=== PATIENT | female | born 1995 ===

== ENCOUNTER → 2016-12-24 | Outpatient (CLI) | payer OTHER ==
--- NOTE | 2016-12-24 15:23 | DIAGNOSTIC IMAGING REPORT ---
RIGHT SHOULDER 3 VIEWS; RIGHT CLAVICLE 3 VIEWS CLINICAL HISTORY: Right shoulder and clavicular pain. Rugby injury. FINDINGS: 3 views of the right shoulder and 3 views of the right clavicle are obtained. No prior studies are available for comparison at the time of dictation. The skeletal structures are well mineralized. There is a Hill-Sachs lesion identified in the posterior humeral head with a small subchondral fracture suggested. No distracted fragment is seen. No additional fracture is clearly seen. The clinical history articulation is preserved, as is the right acromioclavicular joint. There is asymmetry of the sternoclavicular joints on the frontal view, with the right clavicular head somewhat elevated as compared to the left. Mild degenerative change is seen within the superior aspect of the clavicle head. No clavicular fracture is seen. Degenerative subchondral cyst formation is noted within the glenoid. The overlying soft tissues are within normal limits. The imaged right lung parenchyma appears clear. IMPRESSION: 1. There is a Hill-Sachs lesion identified in the posterior humeral head with cortical irregularity suggesting subchondral fracture. No distracted fragment is seen. These findings are age-indeterminant and suggest previous shoulder dislocation type injury. Clinical correlation will be required. 2. No additional fracture is identified. 3. The right glenohumeral and acromioclavicular joints appear well maintained. 4. There is asymmetric elevation of the right clavicular head as compared to the left suggesting injury to the right sternoclavicular joint. CT scanning may provide further information if clinically warranted. 5. Degenerative subchondral cyst formation is noted within the glenoid, advanced for age. Electronically signed by: Rafita Santiago M.D. 12/24/2016 3:21 PM Dictated Date/Time: 12/24/2016 3:13 PM
== END | disposition home or self-care (01) ==
LOC: C.RDSM 14:45
PROVIDERS: ATTEND Family Medicine
DX: M89.8X1 Other specified disorders of bone, shoulder (principal); S42.294A Other nondisplaced fracture of upper end of right humerus, initial encounter for closed fracture; X58.XXXA Exposure to other specified factors, initial encounter; R93.7 Abnormal findings on diagnostic imaging of other parts of musculoskeletal system

== ENCOUNTER → 2017-01-28 | Outpatient (CLI) | payer OTHER ==
--- NOTE | 2017-01-28 17:00 | DIAGNOSTIC IMAGING REPORT ---
MRI THE RIGHT KNEE NO CONTRAST CLINICAL HISTORY: Right knee pain COMPARISON STUDY: No previous studies for comparison. FINDINGS: Imaging was performed in the sagittal, coronal, and axial planes. There is a trace joint effusion. There are bone bruises involving the lateral femoral condyle and posterior aspect of the lateral tibial plateau. The posterior cruciate ligament appears normal. The anterior cruciate ligament is torn. There is a linear increased signal within the posterior horn the medial meniscus, but this does not reach a meniscal surface and does not meet the criteria of a tear. No tears a lateral meniscus are visualized. There is minimal edema adjacent to the medial collateral ligament suggesting a minor sprain. Lateral collateral ligament appears intact. IMPRESSION: 1. Anterior cruciate ligament tear 2. Minimal medial collateral ligament sprain 3. No evidence of meniscal tear 4. Bone bruises involving the lateral femoral condyle and posterior aspect of the lateral tibial plateau Electronically signed by: Sky Ricardo M.D. 01/28/2017 4:58 PM Dictated Date/Time: 01/28/2017 4:55 PM
== END | disposition home or self-care (01) ==
LOC: C.MRIBC 15:56
PROVIDERS: ATTEND Family Medicine
DX: S83.511A Sprain of anterior cruciate ligament of right knee, initial encounter (principal); S83.411A Sprain of medial collateral ligament of right knee, initial encounter; X58.XXXA Exposure to other specified factors, initial encounter